=== PATIENT | male | born 1975 | race Caucasian/White ===

== ENCOUNTER → 2025-08-01 | Outpatient (CLI) | payer MEDICAID, SELFPAY ==
--- NOTE | 2025-08-01 07:15 | MRI_ITS ---
PROCEDURE: SPINE LUMBAR (ROUTINE) 08/01/2025 REASON FOR EXAM: PAIN TECHNIQUE: Procedure Code: MRISPL Modality: MR Procedure: SPINE LUMBAR (ROUTINE) COMPARISON: X-ray examination of the lumbar spine, 04/18/2025 FINDINGS: Vertebrae: There is normal bone marrow signal in the lower thoracic and lumbar vertebral bodies. Alignment: There is maintenance of the normal lumbar lordosis. There is mild dextroscoliosis of the lumbar spine. Conus Medullaris: The conus medullaris terminates normally at the L1-2 level. L1-2: There is no disc degeneration. There is no facet arthropathy. There is no central canal stenosis, lateral recess stenosis or foraminal narrowing. L2-3: There is no disc degeneration. There is no significant facet arthropathy. There is no central canal stenosis, lateral recess stenosis or foraminal narrowing. L3-4: There is no disc degeneration. There is no significant facet arthropathy. There is no central canal stenosis, lateral recess stenosis or foraminal narrowing. L4-5: There is a broad-based central disc protrusion. There is bilateral facet arthropathy and ligamentum flavum bulging. There is mild compression of the thecal sac. There is no central canal stenosis. There is no lateral recess stenosis. There is moderate foraminal narrowing bilaterally. L5-S1: There is a focal central disc protrusion. There is facet arthropathy with ligamentum flavum bulging. There is no central canal stenosis, lateral recess stenosis or foraminal narrowing. Sacrum: The visualized sacrum is unremarkable. The paravertebral soft tissues are unremarkable. MRI/Spine Lumbar (Routine) IMPRESSION: There is degenerative disc disease, L4-5 and L5-S1. There is mild compression of the thecal sac and moderate foraminal narrowing bilaterally at L4-5. Reading Location: [place] [id number]
== END | disposition home or self-care (01) ==
LOC: MRI 07:08
PROVIDERS: PCP Nurse Practitioner Family; Referring Provider Student in an Organized Health Care Education/Training Program; Visit Provider Student in an Organized Health Care Education/Training Program
DX: M51.360 Other intervertebral disc degeneration, lumbar region with discogenic back pain only (principal)
CPT/HCPCS: 72148

== ENCOUNTER 2025-09-09 06:51 | Day surgery (SDC) | payer MEDICAID, SELFPAY ==
--- NOTE | 2025-09-02 07:38 | EKG12_ITS ---
Test Reason : PREOP Blood Pressure : */* mmHG Vent. Rate : 73 BPM Atrial Rate : 73 BPM P-R Int : 162 ms QRS Dur : 92 ms QT Int : 380 ms P-R-T Axes : 58 24 54 degrees QTcB Int : 418 ms Sinus rhythm with Premature atrial complexes Otherwise normal ECG Confirmed by Handy Ruiz ([id number]), mapping editor ANTOINETTE DSOUZA ([id number]) on 09/02/2025 10:29:30 AM Referred By: Diego Walker Confirmed By: Handy Ruiz
--- NOTE | 2025-09-02 12:59 | PAT.ANE_ITS ---
Pre-Assessment Diagnosis/Proposed Procedure Planned Operative Procedure(s): (N/A) Septoplasty, Resect/Outfracture Turbinates Anesthesia History Anesthesia History - art consultant: Anesthesia History - art consultant Hx Hospitalization No 08/26/25 13:16 Any Problems With Anesthesia No 08/26/25 13:16 Cholinesterase deficiency No 08/26/25 13:16 You/Your Family Experience No 08/26/25 13:16 fever (hyperthermia) with Relationship Recent Exposure to Contagious Disease Does patient have nerve No 08/26/25 13:16 stimulator Patient instructed to have device shut off --Does patient have Pacemaker or ICD? When Was Last Pacemaker Check QUESTION #4 FULL TEXT: You/Your Family Experience fever (hyperthermia) with Anesthesia Last Oral Intake Last Oral intake: Last Oral Intake NPO since Meds taken in AM with sips of water? 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 - art consultant: PONV - art consultant Female No 08/26/25 13:16 HX of Motion Sickness Yes 08/26/25 13:16 HX of N/V After Surgery No 08/26/25 13:16 Non-Smoker Yes 08/26/25 13:16 Duration of Surgery greater Yes 08/26/25 13:16 than 60 minutes Number of Risk Factors 3 08/26/25 13:16 PONV Score Moderate Risk 08/26/25 13:16 Height & Weight Height & Weight: Anesthesia: Height & Weight Height 6 ft 5 in 04/18/25 08:53 Respiratory Assessment Respiratory Assessment - art consultant: Respiratory Tract Infection Hx - art consultant Hx Respiratory Tract Infection No 08/26/25 13:16 STOP Sleep Apnea STOP Sleep Apnea - art consultant: STOP Sleep Apnea - art consultant Hx Hypertension Yes: CONTROLLED WITH MED 08/26/25 13:16 Hx Sleep Apnea No 08/26/25 13:16 CPAP BIPAP Do you snore loudly (louder No 08/26/25 13:16 than talking or can be heard Do you often feel tired/ No 08/26/25 13:16 fatigued/ sleepy during daytime? Has anyone observed you stop No 08/26/25 13:16 breathing during sleep? STOP Results Negative 08/26/25 13:16 QUESTION #5 FULL TEXT : Do you snore loudly (louder than talking or can be heard through closed doors)? 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 Specify any problems Hx of Preganancy in last 3 N/A 08/26/25 13:16 Months Nurse Filling Out Transfusion NBUCHER 08/26/25 13:16 & Questions: Date: 08/26/25 08/26/25 13:16 Time: 13:17 08/26/25 13:16 Patient unable to answer at this time (ie. confused, unrespo /Reproduction History /Reproductive History - art consultant: /Reproductive Hx- art consultant Hx Now No 08/26/25 13:16 Gestational Age (in weeks): EDC: Hx Hx Para Hx Section SAB No 08/26/25 13:16 Does the father of the baby or his family experience fever w Father of the baby Malignant Hypertension history comment [facility] Medical History (Updated 08/26/25 @ 13:21 by Kamala Wilkins) High cholesterol Blackout Gastric reflux Non-smoker History of edema Osteoarthritis of right knee Effusion, right knee Right knee pain Home Medications Medication Instructions Recorded Last Taken Type amlodipine 10 mg tablet 10 mg PO QDAY 03/21/25 Unkno wn History atorvastatin 80 mg tablet 80 mg PO QDAY 03/21/25 Unkno wn History cetirizine 10 mg tablet 10 mg PO QHS 03/21/25 Unknow n History cyclobenzaprine 10 mg tablet 10 mg PO QHS PRN PRN musc le spasm 08/26/25 Unknown History meloxicam 15 mg tablet 15 mg PO DAILY PRN pain 01/15 Unknown History montelukast 10 mg tablet 10 mg PO DAILY 08/26/25 Unkn own History Allergy/AdvReac Type Severity Reaction Status Date / Time cat dander (cats) Allergy Severe Stuffy nose Verified 08/26/25 13:14 Family History Father Diabetes Mother Diabetes Surgical History (Updated 08/26/25 @ 13:21 by Kamala Wilkins) Hx of LASIK (09/23/24) H/O hernia repair Social History (System 08/26/25 @ 06:46 by Samira Jesus) household members: spouse Smoking Status: Never smoker alcohol intake: current Audit: Pertinent Findings Pertinent Findings EKG Perinent findings: Sinus rhythm with Premature atrial complexes Otherwise normal ECG Confirmed by Handy Ruzi ([id number]), associate editor ANTOINETTE DSOUZA ([id number]) on 09/02/2025 10:29:30 AM Recommendation Anesthesia Recommendation Anesthesia recommendation: OPTIMIZED for anesthesia
[2025-09-09] VITALS (8 sets, daily range): BP systolic 141–163; BP diastolic 91–100; PULSE 70–93; RESP 16–20; TEMP 36.8–37.1; O2SAT 98–100; BMI 31.4
--- OUTSIDE RECORDS SUMMARY | 2025-09-09 06:54 | XMS RPT_ITS | CCD ---
Author Organization [facility] Care Team Providers Care Profile Grinder Technician Name Role Phone Keegan Rothman MD Attending Provider Loyd BRAGG, Dr. Grajeda Attending Provider Naheed Eugene Attending Provider NATE, SHEILA Consulting Unavailable NAHEED BENTLEY PA Admitting Unavailable SHARITA BENTLEYYN PA Primary Care Unavailable NAHEED BENTLEY PA Attending Unavailable PROVIDER, UNKNOWN Consulting Unavailable NATE, SHEILA Consulting Unavailable NATE, SHEILA Attending Unavailable NATE, SHEILA Admitting Unavailable NATE, SHEILA Primary Care Unavailable PROVIDER, UNKNOWN Consulting Unavailable NATE, SHEILA Primary Care Unavailable NATE, SHEILA Consulting Unavailable NATE, SHEILA Attending Unavailable NATE, SHEILA Admitting Unavailable PROVIDER, UNKNOWN Consulting Unavailable NATE, SHEILA Consulting Unavailable SHARITA BENTLEYYN PA Admitting Unavailable SHARITA BENTLEYYN PA Primary Care Unavailable NAHEED BENTLEY PA Attending Unavailable PROVIDER, UNKNOWN Consulting Unavailable Diego Walker Referring Unavailable Diego Walker Attending Unavailable Nate SCREEN PRINTING INSPECTOR, Sheila Primary Care Unavailable Diego Walker Attending Unavailable Bhupinder Walkerin Referring Unavailable Nate SCREEN PRINTING INSPECTOR, Sheila Primary Care Unavailable Nate SCREEN PRINTING INSPECTOR, Sheila Primary Care Unavailable Sharita Bentleyyn Attending Unavailable Mc, Naheed Referring Unavailable Naty Harpl Attending Unavailable Sharita Bentleyyn Attending Unavailable Taras Harp Attending Unavailable Nate SCREEN PRINTING INSPECTOR, Sheila Referring Unavailable Sharita Bentleyyn Attending Unavailable Nate SCREEN PRINTING INSPECTOR, Sheila Primary Care Unavailable Keegan Rothman Attending Unavailable Allergies Allergy Classification Reported Allergen(s) Allergy Type Date of Onset Reaction(s) Facility (3 sources) cat dander; Translations: [cat dander] Allergy to substance 04-18-2025 Stuffy nose [facility] Medications Current Medications Medication Drug Class(es) Dates Sig (Normalized) Sig (Original) amLODIPine 10 mg oral tablet (4 sources) Dihydropyridine Calcium Channel Rajendra Start: 03-21-2025 take 1 tablet by mouth once daily Amlodipine 10 mg tablet Active 10 mg PO daily March 21, 2025 12:00am atorvastatin 80 mg oral tablet (4 sources) HMG-CoA Reductase Inhibitor Start: 03-21-2025 take 1 tablet by mouth once daily Atorvastatin 80 mg tablet Active 80 mg PO daily March 21, 2025 12:00am cetirizine hydrochloride 10 mg oral tablet (4 sources) Histamine-1 Receptor Antagonist Start: 03-21-2025 take 1 tablet by mouth at bedtime Cetirizine 10 mg tablet Active 10 mg PO AT BEDTIME March 21, 2025 12:00am meloxicam 15 mg oral tablet (1 source) Nonsteroidal Anti-inflammatory Drug Start: 04-18-2025 take 1 tablet by mouth once daily Meloxicam 15 mg tablet Active 15 mg PO daily April 18, 2025 12:00am Problems Active Problems Problem Classification Problem Date Documented Date Episodic/Chronic Disorders of lipid metabolism (2 sources) Hyperlipidemia, unspecified; Translations: [Hyperlipidemia, unspecified] Onset: 09-07-2024 Chronic Essential hypertension (5 sources) Hypertensive disorder; Translations: [Essential (primary) hypertension] Onset: 03-14-2025 03-21-2025 Chronic Osteoarthritis (7 sources) Osteoarthritis of right knee joint; Translations: [Unilateral primary osteoarthritis, right knee] Onset: 04-09-2025 03-21-2025 Chronic Other non-traumatic joint disorders (6 sources) Effusion of right knee joint; Translations: [Effusion, right knee] 03-21-2025 Episodic Unclassified (2 sources) Other intervertebral disc degeneration, lumbar region with discogenic back pain only; Translations: [Other intervertebral disc degeneration, lumbar region with discogenic back pain only] Onset: 06-25-2025 Unclassified (1 source) Other intervertebral disc degeneration, lumbar region with discogenic back pain only; Translations: [Other intervertebral disc degeneration, lumbar region with discogenic back pain only] Onset: 08-26-2025 Past or Other Problems Problem Classification Problem Date Documented Date Episodic/Chronic Diabetes mellitus without complication (2 sources) Impaired fasting glucose; Translations: [Impaired fasting glucose] Onset: 09-07-2024 Episodic Other non-traumatic joint disorders (9 sources) Pain in right knee; Translations: [Right knee pain] Onset: 04-09-2025 03-21-2025 Episodic Other non-traumatic joint disorders (1 source) Effusion, right knee; Translations: [Effusion, right knee] Onset: 04-09-2025 Episodic Spondylosis; intervertebral disc disorders; other back problems (1 source) Dorsalgia, unspecified; Translations: [Dorsalgia, unspecified] Onset: 04-18-2025 Episodic Unclassified (1 source) Other intervertebral disc degeneration, lumbar region with discogenic back pain only; Translations: [Other intervertebral disc degeneration, lumbar region with discogenic back pain only] Onset: 06-25-2025 Results Test Name Value Interpretation Reference Range Facil ity 12 Lead EKGon 09-02-[address] [facility] Cardiovascular Services [address] [place] [address] 12 Lead EKG 09/02/25 0742 MR#: [id number] Acct: [id number] Name: JOSE ZAPIEN Rep #: [id number] : 1975 50 From: Handy Ruiz MD Attending Dr: Dr. Diego Walker MD Status: PRE [facility] [place]: Diego Walker MD Date: 09/02/25 [place] [facility] [place] Sex: M C Admitted: Test Reason : PREOP Blood Pressure : */* mmHG Vent. Rate : 73 BPM Atrial Rate : 73 BPM P-R Int : 162 ms QRS Dur : 92 ms QT Int : 380 ms P-R-T Axes : 58 24 54 degrees QTcB Int : 418 ms Sinus rhythm with Premature atrial complexes Otherwise normal ECG Confirmed by Handy Ruiz ([id number]), film editor supervisor ANTOINETTE DSOUZA ([id number]) on 09/02/2025 10:29:30 AM Referred By: Diego Walker Confirmed By: Handy Ruiz 09/02/25 1029 Date Handy Ruiz MD CC: DANILO Sullivan; Dr. Diego Walker MD Signed Normal [facility] MR/PATLidia 09-02-2025 MR/PAT.DEV [facility] Medical Records Department [address] [place] [address] PAT - Anesthesia 09/02/25 1259 MR#: [id number] Acct: [id number] Name: JOSE ZAPIEN Rep #: [id number] : 1975 50 From: Zoltan Green MD PCP: Sheila Sullivan SCREEN PRINTING INSPECTORValeriyC Status:PRE SDC Y Race: C [place] [facility] [place]-Assessment Diagnosis/Proposed Procedure Planned Operative Procedure(s): (N/A) Septoplasty, Resect/Outfracture Turbinates Anesthesia History Anesthesia History - reed dipper: Anesthesia History - reed dipper Hx Hospitalization No 08/26/25 13:16 Any Problems With Anesthesia No 08/26/25 13:16 Cholinesterase deficiency No 08/26/25 13:16 You/Your Family Experience No 08/26/25 13:16 fever (hyperthermia) with Relationship Recent Exposure to Contagious Disease Does patient have nerve No 08/26/25 13:16 stimulator Patient instructed to have device shut off --Does patient have Pacemaker or ICD? When Was Last Pacemaker Check QUESTION #4 FULL TEXT: You/Your Family Experience fever (hyperthermia) with Anesthesia Last Oral Intake Last Oral intake: Last Oral Intake NPO since Meds taken in AM with sips of water? 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 - reed dipper: PONV - reed dipper Female No 08/26/25 13:16 HX of Motion Sickness Yes 08/26/25 13:16 HX of N/V After Surgery No 08/26/25 13:16 Non-Smoker Yes 08/26/25 13:16 Duration of Surgery greater Yes 08/26/25 13:16 than 60 minutes Number of Risk Factors 3 08/26/25 13:16 PONV Score Moderate Risk 08/26/25 13:16 Height Weight Height Weight: Anesthesia: Height Weight Height 6 ft 5 in 04/18/25 08:53 Respiratory Assessment Respiratory Assessment - reed dipper: Respiratory Tract Infection Hx - reed dipper Hx Respiratory Tract Infection No 08/26/25 13:16 STOP Sleep Apnea STOP Sleep Apnea - reed dipper: STOP Sleep Apnea - reed dipper Hx Hypertension Yes: CONTROLLED WITH MED 08/26/25 13:16 Hx Sleep Apnea No 08/26/25 13:16 CPAP BIPAP Do you snore loudly (louder No 08/26/25 13:16 than talking or can be heard Do you often feel tired/ No 08/26/25 13:16 fatigued/ sleepy during daytime? Has anyone observed you stop No 08/26/25 13:16 breathing during sleep? STOP Results Negative 08/26/25 13:16 QUESTION #5 FULL TEXT : Do you snore loudly (louder than talking or can be heard through closed doors)? 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 Specify any problems Hx of Preganancy in last 3 N/A 08/26/25 13:16 Months Nurse Filling Out Transfusion NBUCHER 08/26/25 13:16 Questions: Date: 08/26/25 08/26/25 13:16 Time: 13:17 08/26/25 13:16 Patient unable to answer at this time (ie. confused, unrespo /Reproductio n History /Reproductiv e History - reed dipper: /Reproductiv e Hx- reed dipper Hx Now No 08/26/25 13:16 Gestational Age (in weeks): EDC: Hx Hx Para Hx Section SAB No 08/26/25 13:16 Does the father of the baby or his family experience fever w Father of the baby Malignant Hypertension history comment [facility] Medical History (Updated 08/26/25 @ 13:21 by Kamala Wilkins) High cholesterol Blackout Gastric reflux Non-smoker History of edema Osteoarthritis of right knee Effusion, right knee Right knee pain Home Medications ???Medication ???Instructions ???Recorded ???Last Taken ???Type amlodipine 10 mg tablet 10 mg PO QDAY 03/21/25 Unknown His tory atorvastatin 80 mg tablet 80 mg PO QDAY 03/21/25 Unknown His tory cetirizine 10 mg tablet 10 mg PO QHS 03/21/25 Unknown Hist ory cyclobenzaprine 10 mg tablet 10 mg PO QHS PRN PRN muscle spasm 08/26/25 Unknown History meloxicam 15 mg tablet 15 mg PO DAILY PRN pain 08/26/25 U nknown History montelukast 10 mg tablet 10 mg PO DAILY 08/26/25 Unknown Hi story Allergy/AdvReac Type Severity Reaction Status Date / Ralph (more content not included)... Normal [facility] Orthopedic Visit Reporton Orthopedic Visit Report [facility] [address] [place] [id number] OFFICE VISIT Date of Service: 08/23/25 MR#: [id number] Acct: [id number] Name: JOSE ZAPIEN Rep #: [id number] : 1975 Provider: MAIA Jane Age/Sex: 50/M Location: [facility] [place].[facility] Status: Signed Intake Vital Signs 04/18/25 08:53 Height 6 ft 5 in Weight: 260 lb BMI 30.8 Intake Visit Reasons: LUMBAR SPINE Chief Complaint: Lumbar spine pain Accompanied by: Self Allergies cat dander (cats) Allergy (Severe, Verified 08/23/25 08:10) Stuffy nose Medications ???Medication ???Instructions ???Recorded ???Confirmed ???Type amlodipine 10 mg tablet 10 mg PO QDAY 03/21/25 08/23/25 Hi story atorvastatin 80 mg tablet 80 mg PO QDAY 03/21/25 08/23/25 Hi story cetirizine 10 mg tablet 10 mg PO QHS 03/21/25 08/23/25 His tory PFSH Medical History Osteoarthritis of right knee Effusion, right knee Right knee pain Surgical History H/O hernia repair Family History Father Diabetes Mother Diabetes Social History household members: spouse Smoking Status: Never smoker alcohol intake: current HPI LUMBAR SPINE Details: This documentation accurately reflects the service provided and the decisions made by me, MAIA Jane 08/23/25 0806. Part of today???s visit was documented by Shanthi GUAN, acting as scribe. JOSE ZAPIEN is a 50 year old M here today for MRI review of the lumbar spine. Patient denies any changes to his symptoms. He has completed 6 weeks of therapy. He is getting sinus surgery in August. HPI from 04/18/25: Patient is having pain in the lower back. The pain is like an achy and throbbing pain. When he lifting up a heavy item he can feel something pulling his back. When he sleeps on his side, or back too long he feels an ache. This has been going on for 7-8 years. Patient states that he was at work when this happened. 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 Patient denies any surgery on his lower back. Sitting for a long period of time makes the pain worse. Bending and lifting heavy items makes the pain worse. Patient denies any injections in his back. he denies any physical therapy. Patient did massage therapy, but that didn't help. He states that he did acupuncture a few years ago, but it didn't help his back pain. Patient stated that he went to a chiropractor, but it didn't help his back, his back was too tight from working. He saw the chiropractor 2-3 times per week for a while and now hasn't seen any benefit with it. Hasn't been back in 2-3 years. Patient denies any diabetes, or blood thinners. No heart or lung issues. Patient denies any smoking, or drug use. Patient denies any numbness or tingling in the feet or toes. He states that he hasn't noticed any balance issues. No cane or walker. Patient reports that he is supposed to be wearing a right sided heel lift. The patient also reports that he has seen Dr. Nguyen recently for right-sided knee pain and a knee effusion. Says that he has been trying to take ibuprofen [id number]-gzt-aloneex for this issue. Ortho Exam General General: Yes no acute distress Neurologic: Yes alert and Yes oriented x3 Psychologic: Yes reasonable and appropriate Spine SPINE TESTING CERVICAL THORACIC LUMBAR Musculoskeletal Strength 0=absent - 5=normal Details: Neurological exam of the lower extremities shows 5x5 power. Normal sensations across all dermatomes. No hyperreflexia. No midline or paraspinal tenderness. Gaenslen's positive on left. Figure 4 negative bilaterally. There is a small circular right sided soft tissue palpated on exam. Coding Level of Care Code Off vis,est,level 4 Diagnoses Degenerative disc disease (DDD) of lumbar region with axial back pain without leg pain M51.360 Assessment and Plan Assessment and Plan (1) Degenerative disc disease (DDD) of lumbar region with axial back pain without leg pain: Status: Acute Orders: Referrals Pain Management M51.360 - Other intervertebral disc degeneration, lumbar region with discogenic back pain only Plan Again reviewed prior lumbar X-rays show a dextroscoliosis, mild limb length discrepancy with the right shorter than the left, mild degenerative changes in the lumbar spine. Reviewed lumbar MRI from 08/01/2025. Lumbar MRI showed L4-5 broad-based minimal disc bulge without any central canal stenosis and moderate neural foraminal stenosis. L5-S1 central mild disc bulge without any central canal stenosis or foraminal stenosis. Explained the imaging fin (more content not included)... Normal [facility] Spine Lumbar (Routine)on Spine Lumbar (Routine) [facility] Imaging Services [address] [place] [address] Spine Lumbar (Routine) MR#: [id number] Acct: [id number] Name: JOSE ZAPIEN Rep #: [id number] : 1975 M 50 From: Shantanu Liriano MD PCP: DANILO Quick Status: REG CLI Study: Spine Lumbar (Routine) Date of Exam: 08/01/25 Exam# [id number] Ordering Dr: Naheed Bentley PROCEDURE: SPINE LUMBAR (ROUTINE) 08/01/2025 REASON FOR EXAM: PAIN TECHNIQUE: Procedure Code: MRISPL Modality: MR Procedure: SPINE LUMBAR (ROUTINE) COMPARISON: X-ray examination of the lumbar spine, 04/18/2025 FINDINGS: Vertebrae: There is normal bone marrow signal in the lower thoracic and lumbar vertebral bodies. Alignment: There is maintenance of the normal lumbar lordosis. There is mild dextroscoliosis of the lumbar spine. Conus Medullaris: The conus medullaris terminates normally at the L1-2 level. L1-2: There is no disc degeneration. There is no facet arthropathy. There is no central canal stenosis, lateral recess stenosis or foraminal narrowing. L2-3: There is no disc degeneration. There is no significant facet arthropathy. There is no central canal stenosis, lateral recess stenosis or foraminal narrowing. L3-4: There is no disc degeneration. There is no significant facet arthropathy. There is no central canal stenosis, lateral recess stenosis or foraminal narrowing. L4-5: There is a broad-based central disc protrusion. There is bilateral facet arthropathy and ligamentum flavum bulging. There is mild compression of the thecal sac. There is no central canal stenosis. There is no lateral recess stenosis. There is moderate foraminal narrowing bilaterally. L5-S1: There is a focal central disc protrusion. There is facet arthropathy with ligamentum flavum bulging. There is no central canal stenosis, lateral recess stenosis or foraminal narrowing. Sacrum: The visualized sacrum is unremarkable. The paravertebral soft tissues are unremarkable. MRI/Spine Lumbar (Routine) IMPRESSION: There is degenerative disc disease, L4-5 and L5-S1. There is mild compression of the thecal sac and moderate foraminal narrowing bilaterally at L4-5. Reading Location: [place] [address] CC: DANILO Sullivan; MAIA Jane Plant Floor Automation Manager: Signed Normal [facility] L/S Spine Min 4 Viewson 03-25 L/S Spine Min [address] [facility] Imaging Services [address] [place] [address] L/S Spine Min 4 Views MR#: [id number] Acct: [id number] Name: JOSE ZAPIEN Rep #: [id number] : 1975 M 49 From: Brayden Napier MD PCP: Status: DEP AMB Study: L/S Spine Min 4 Views Date of Exam: 04/18/25 Exam# [id number] Ordering Dr: Naheed Bentley EXAM: XR Lumbosacral Spine Flexion/Extension Only, 2 or 3 Views CLINICAL INDICATION: ONGOING BACK PAIN TECHNIQUE: Lateral flexion/extension views of the lumbar spine and sacrum. COMPARISON: No relevant prior studies available. FINDINGS: VERTEBRAE: Mild facet arthropathy of L4-S1. Normal sagittal alignment. No acute fracture or significant facet arthropathy. SACRUM/COCCYX: Unremarkable as visualized. No acute fracture. DISC SPACES: No acute findings. No significant narrowing. SOFT TISSUES: Unremarkable. RAD/L/S Spine Min 4 Views IMPRESSION: 1. No acute fracture or significant facet arthropathy. 2. Degenerative changes as above. Reading [facility] CC: MAIA Jane Plant Floor Automation Manager: Signed Normal [facility] Orthopedic Visit Reporton Orthopedic Visit Report [facility] [address] [place] [address] OFFICE VISIT Date of Service: 04/18/25 MR#: [id number] Acct: [id number] Name: JOSE ZAPIEN Rep #: [id number] : 1975 Provider: MAIA Jane Age/Sex: 49/M Location: [facility] [place] Status: Signed Intake Vital Signs 03/21/25 09:19 04/18/25 08:53 Height 6 ft 5 in 6 ft 5 in Weight: 259 lb 8 oz 260 lb BMI 30.7 30.8 Intake Visit Reasons: LUMBAR SPINE Chief Complaint: Lumbar spine pain Accompanied by: Self Is patient in pain?: No Allergies cat dander (cats) Allergy (Severe, Verified 04/18/25 08:56) Stuffy nose Medications ???Medication ???Instructions ???Recorded ???Confirmed ???Type amlodipine 10 mg tablet 10 mg PO QDAY 03/21/25 04/18/25 Hi story atorvastatin 80 mg tablet 80 mg PO QDAY 03/21/25 04/18/25 Hi story cetirizine 10 mg tablet 10 mg PO QHS 03/21/25 04/18/25 His tory meloxicam 15 mg tablet 15 mg PO QDAY #30 tabs 04/18/25 Rx Have you fallen in the past year?: No [facility] Medical History Osteoarthritis of right knee Effusion, right knee Right knee pain Surgical History H/O hernia repair Family History Father Diabetes Mother Diabetes Social History household members: spouse Smoking Status: Never smoker alcohol intake: current HPI LUMBAR SPINE Details: This documentation accurately reflects the service provided and the decisions made by me, MAIA Jane 04/18/25 0853. Part of today???s visit was documented by Glenn Jones MA, acting as scribe. JOSE ZAPIEN is a 49 year old M here today for lumbar spine. Patient is having pain in the lower back. The pain is like an achy and throbbing pain. When he lifting up a heavy item he can feel something pulling his back. When he sleeps on his side, or back too long he feels an ache. This has been going on for 7-8 years. Patient states that he was at work when this happened. 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 Patient denies any surgery on his lower back. Sitting for a long period of time makes the pain worse. Bending and lifting heavy items makes the pain worse. Patient denies any injections in his back. he denies any physical therapy. Patient did massage therapy, but that didn't help. He states that he did acupuncture a few years ago, but it didn't help his back pain. Patient stated that he went to a chiropractor, but it didn't help his back, his back was too tight from working. He saw the chiropractor 2-3 times per week for a while and now hasn't seen any benefit with it. Hasn't been back in 2-3 years. Patient denies any diabetes, or blood thinners. No heart or lung issues. Patient denies any smoking, or drug use. Patient denies any numbness or tingling in the feet or toes. He states that he hasn't noticed any balance issues. No cane or walker. Patient reports that he is supposed to be wearing a right sided heel lift. The patient also reports that he has seen Dr. Nguyen recently for right-sided knee pain and a knee effusion. Says that he has been trying to take ibuprofen bnxi-hdx-uviyvyk for this issue. Ortho Exam General General: Yes no acute distress Neurologic: Yes alert and Yes oriented x3 Spine SPINE TESTING CERVICAL THORACIC LUMBAR Musculoskeletal Strength 0=absent - 5=normal Details: Neurological exam of the lower extremities shows 5x5 power. Normal sensations across all dermatomes. No hyperreflexia. No midline or paraspinal tenderness. Gaenslen's positive on left. Figure 4 negative bilaterally. There is a small circular right sided soft tissue palpated on exam. Coding Level of Care Code Off vis,est,level 3 Diagnoses Degenerative disc disease (DDD) of lumbar region with axial back pain without leg pain M51.360 Assessment and Plan Assessment and Plan (1) Degenerative disc disease (DDD) of lumbar region with axial back pain without leg pain: Status: Acute Orders: Orders L/S Spine Min 4 Views Today M54.9 - Dorsalgia, unspecified Spine Lumbar (Routine) Today M51.360 - Other intervertebral disc degeneration, lumbar region with discogenic back pain only Referrals Physical Therapy Referral M51.360 - Other intervertebral disc degeneration, lumbar region with discogenic back pain only Medications: New meloxicam 15 mg PO QDAY 30 tabs 0RF Plan Obtained and reviewed lumbar x-rays today in the clinic. Independent rotation of the x-rays was performed. X-rays show a dextroscoliosis, mil (more content not included)... Normal [facility] Knee 4 or More Viewson 03-[address] [facility] Imaging Services [facility] [address] [place], [place] [id number] Knee 4 or More Views MR#: [id number] Acct: [id number] Name: JOSE ZAPIEN Rep #: [id number] : 1975 M 49 From: Thee Coburn MD PCP: Status: DEP AMB Study: Knee 4 or More Views Date of Exam: 03/21/25 Exam# [id number] Ordering Dr: Keegan Rothman MD PROCEDURE: KNEE 4 OR MORE VIEWS 03/21/2025 REASON FOR EXAM: PAIN AND POPPING, NKI TECHNIQUE: 4 view(s) of the right knee COMPARISON: None available FINDINGS: No fracture or dislocation. Nzbuvmbp-cb-ufldw joint effusion. The joint spaces appear within limits. Question mild lateral translation of the tibia in relation to the femur on the weightbearing AP view RAD/Knee 4 or More Views IMPRESSION: Fgnfyubu-gh-oztdo joint effusion. If further clinical concern for possible internal joint derangement may further evaluate with MRI as warranted. Reading Location: [id number] CC: Dr. Keegan Rothman MD Plant Floor Automation Manager: Signed Normal [facility] Orthopedic Visit Reporton Orthopedic Visit Report [facility] [address] [place] [address] OFFICE VISIT Date of Service: 03/21/25 MR#: [id number] Acct: [id number] Name: JOSE ZAPIEN Rep #: [id number] : 1975 Provider: Dr. Keegan jung MD Age/Sex: 49/M Location: [facility]ANN[facility] Status: Signed Intake Vital Signs 03/21/25 09:19 Height 6 ft 5 in Weight: 259 lb 8 oz BMI 30.7 Intake Visit Reasons: RIGHT KNEE Accompanied by: Self Is patient in pain?: Yes Pain scale (1-10): 3 Allergies No Known Allergies Allergy (Unverified 03/21/25 09:19) Medications ???Medication ???Instructions ???Recorded ???Confirmed ???Type amlodipine 10 mg tablet 10 mg PO QDAY 03/21/25 03/21/25 Hi story atorvastatin 80 mg tablet 80 mg PO QDAY 03/21/25 03/21/25 Hi story cetirizine 10 mg tablet 10 mg PO QHS 03/21/25 03/21/25 His tory Have you fallen in the past year?: No [facility] Medical History (Updated 03/21/25 @ 09:43 by Keegan Rothman MD) Osteoarthritis of right knee Effusion, right knee Right knee pain Surgical History (Updated 03/21/25 @ 09:21 by Gayle Ley) H/O hernia repair Family History (Updated 03/21/25 @ 09:22 by Gayle Ley) Father Diabetes Mother Diabetes Social History (Updated 03/21/25 @ 09:22 by Gayle Ley) household members: spouse Smoking Status: Never smoker alcohol intake: current HPI RIGHT KNEE Details: This documentation accurately reflects the service provided and the decisions made by me, Dr. Keegan Rothman MD 03/21/25 0802. Part of today???s visit was documented by [ ], acting as scribe. JOSE ZAPIEN is a 49 year old M here today for right knee pain. This has been going on for 30 years. Back then the patient was 20 and he was told that he has some soft tissue that needed to be removed in the knee he never got that done his dad had carpal tunnel syndrome at the time and arthritis. He has been dealing with a problem ever since has not had no surgery no recent treatment no bracing physical therapy or other forms of management. 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 Most the pain is anteriorly and diffusely about the knee. It feels tight to go into deep flexion. No recent injuries. Supplemental Info Right knee x-rays 4 views obtained this demonstrates mild medial OA. nil acute. effusion Coding Level of Care Code Off vis,new,level 4 Diagnoses Right knee pain M25.561 Effusion, right knee M25.461 Osteoarthritis of right knee M17.11 Assessment and Plan Assessment and Plan (1) Right knee pain: Status: Acute Plan: JOSE ZAPIEN is a 49 year old M here today for right knee pain. Wants to carry on non surgical and try some oral NSAIds. declined an injection today, will try another week of conservative management. Declined PT / MRI pathway. Has tried a brace. If no better or worse in a week then will try the injection. Patient counselled on diagnosis, prognosis and treatment options. Osteoarthritis (OA) occurs when the cartilage in the knee joint breaks down, causing pain and stiffness. Here are several treatment options to help manage knee pain: 1. Lifestyle Changes What it is: Losing weight, avoiding high-impact activities, and exercising with low-impact activities like swimming or walking. How it helps: Reduces strain on the knee joint, improves muscle strength, and eases pain. 2. Physical Therapy What it is: Targeted exercises to strengthen the muscles around the knee and improve flexibility. How it helps: Provides support to the knee and improves mobility, reducing pain. 3. Medications What they are: Rbtp-pit-pgvxnvh pain relievers like ibuprofen, naproxen, or acetaminophen. How they help: Reduce pain and inflammation, making it easier to move the knee. 4. Injections What they are: Corticosteroid injections for inflammation, hyaluronic acid for lubrication, or PRP injections to promote healing. How they help: Provide temporary pain relief and improve knee function. 5. Assistive Devices What they are: Knee braces, sleeves, or custom shoe inserts. How they help: Provide support, stabilize the knee, and reduce pain. 6. Heat and Cold Therapy What it is: Applying heat or cold to the knee to relieve pain and swelling. How it helps: Heat relaxes muscles, and cold reduces inflammation. 7. Surgery What it is: Options like arthroscopy or knee replacement surgery for severe cases. How it helps: Provides long-term pain relief and improves knee function. When to Seek Help: If knee pain affects daily activities or doesn???t improve with self-care measures. (2) Effusion, right knee: Status (more content not included)... Normal [facility] CBC + DIFFon 03-14-2025 Baso # 0.01 x10EE3/UL Normal 0.00 - 0.10 [facility] Comment on above: Performed By: #### 2 [id number] #### [facility],[address] [place] [address] 45757 Basophils/100 WBC (Bld) 0.2 % Normal 0.0 - 2.0 [facility] Comment on above: Performed By: #### 2 34144 #### [facility],[address] [place] [address] 35870 CBC + DIFF Normal [facility] Comment on above: Result Comment: CBC- COMPLETE BLOOD COUNT Performed By: #### 2 35335 #### [facility],[address] [place] [address] 78843 EO # 0.18 x10EE3/UL Normal 0.00 - 0.50 [facility] Comment on above: Performed By: #### 2 70392 #### [facility],[address] [place], [place] [address] Eosinophils/100 WBC (Bld) 3.2 % Normal 0.0 - 7.0 [facility] Comment on above: Performed By: #### 2 59028 #### [facility],[address] [place], [place] [address] Erythrocyte distribution width (RBC) [Ratio] 13.2 % Normal 12.0 - 15.6 [facility] Comment on above: Performed By: #### 2 21271 #### [facility],[address] [place], [place] [address] Hematocrit (Bld) [Volume fraction] 47.5 % Normal 40.0 - 52.0 [facility] Comment on above: Performed By: #### 2 41076 #### [facility],[address] [place] [place] [address] 70094 Hemoglobin (Bld) [Mass/Vol] 16.3 g/dL Normal 13.0 - 17.5 [facility] Comment on above: Performed By: #### 2 44974 #### [facility],[address] [place] [address] 03130 Lymph # 1.45 x10EE3/UL Normal 0.80 - 2.80 [facility] Comment on above: Performed By: #### 2 58035 #### [facility],[address] [place] [address] 91271 Lymphocytes/100 WBC (Bld) 25.1 % Normal 20.0 - 45.0 [facility] Comment on above: Performed By: #### 2 47369 #### [facility],[address] [place] [address] MANUAL DIFF N/A Normal [facility] Comment on above: Performed By: #### 2 20783 #### [facility],[address] [place] [address] MCH (RBC) [Entitic mass] 29 pg Normal 27 - 33 [facility] Comment on above: Performed By: #### 2 80638 #### [facility],[address] [place] [address] MCHC 34 X10 3 Normal 32 - 36 [facility] Comment on above: Performed By: #### 2 59746 #### [facility],[address] [place] [address] MCV (RBC) [Entitic vol] 85 fL Normal 81 - 98 [facility] Comment on above: Performed By: #### 2 59631 #### [facility],[address] [place] [address] [place]ridge # 0.31 x10EE3/UL Normal 0.20 - 1.00 [facility] Comment on above: Performed By: #### 2 62611 #### [facility],[address] [place] [address] MONOS % 5.3 % Normal 0.0 - 10.0 [facility] Comment on above: Performed By: #### 2 21136 #### [facility],[address] [place] [address] Morphology Paul (Bld) [Interp] N/A Normal [facility] Comment on above: Performed By: #### 2 85446 #### [facility],[address] [place] [address] Neut # 3.82 x10EE3/UL Normal 1.50 - 7.10 [facility] Comment on above: Performed By: #### 2 85219 #### [facility],[address] [place] [address] 35133 Neutrophils/100 WBC (Bld) 66.3 % Normal 46.0 - 76.0 [facility] Comment on above: Performed By: #### 2 86818 #### [facility],[address] [place] [address] 06577 PLATELET 273 x10EE3/UL Normal 150 - 450 [facility] Comment on above: Performed By: #### 2 90397 #### [facility],[address] [place] [address] 16466 Platelet mean volume (Bld) [Entitic vol] 7.4 fL Normal 6.4 - 10.5 [facility] Comment on above: Result Comment: AUTO MATED DIFFERENTIAL Performed By: #### 2 02851 #### [facility],[address] [place] [address] 78565 RBC 5.59 x 10EE6/UL Normal 4.50 - 6.00 [facility] Comment on above: Performed By: #### 2 75769 #### [facility],[address] [place] [address] 18763 WBC 5.8 x 10EE3/UL Normal 4.5 - 10.8 [facility] Comment on above: Performed By: #### 2 27895 #### [facility],[address] [place] [address] 27499 CMP with eGFRon 03-14-2025 AGE 49 years Normal [facility] Comment on above: Performed By: #### 2 22502 #### [facility],[address] [place] [address] 00007 Albumin [Mass/Vol] 3.9 g/dL Normal 3.4 - 5.0 [facility] Comment on above: Performed By: #### 2 66902 #### [facility],[address] [place] [address] 66122 Albumin/Globulin [Mass ratio] 1.1 {ratio} Normal 0.9 - 1.6 [facility] Comment on above: Performed By: #### 2 11466 #### [facility],[address] [place] [address] 43796 ALK PHOS 88 U/L Normal 46 - 116 [facility] Comment on above: Performed By: #### 2 30375 #### [facility],[address] [place] [address] 67304 ALT [Catalytic activity/Vol] 53 U/L Normal 16 - 63 [facility] Comment on above: Performed By: #### 2 35461 #### [facility],[address] [place] [address] 10698 Anion gap [Moles/Vol] 15 mmol/L Normal 10 - 20 [facility] Comment on above: Performed By: #### 2 33678 #### [facility],[address] [place] [address] 09223 AST [Catalytic activity/Vol] 23 U/L Normal 15 - 37 [facility] Comment on above: Performed By: #### 2 79476 #### [facility],[address] [place] [address] 69823 B/C RATIO 17 ratio Normal 0 - 30 [facility] Comment on above: Performed By: #### 2 41026 #### [facility],[address] [place] [address] 48399 Bilirubin [Mass/Vol] 0.4 mg/dL Normal 0.2 - 1.0 [facility] Comment on above: Performed By: #### 2 05610 #### [facility],[address] [place] [address] 68260 Calcium [Mass/Vol] 9.0 mg/dL Normal 8.5 - 10.1 [facility] Comment on above: Performed By: #### 2 79219 #### [facility],[address] [place] [address] 62018 Chloride [Moles/Vol] 104 mmol/L Normal 98 - 107 [facility] Comment on above: Performed By: #### 2 51366 #### [facility],[address] [place] [address] 03733 CMP with eGFR Normal [facility] Comment on above: Result Comment: COMP REHENSIVE METABOLIC PANEL Performed By: #### 2 60556 #### [facility],[address] [place] [address] 44649 CO2 [Moles/Vol] 25.1 mmol/L Normal 21.0 - 32.0 [facility] Comment on above: Performed By: #### 2 36668 #### [facility],[address] [place] [address] 58817 Creatinine [Mass/Vol] 0.93 mg/dL Normal 0.70 - 1.30 [facility] Comment on above: Performed By: #### 2 23247 #### [facility],[address] [place] [address] 58865 GFR/1.73 sq M.predicted among non-blacks MDRD (S/P/Bld) [Vol rate/Area] mL/min/{1.73_m2} Normal 60 - 999 [facility] Comment on above: Performed By: #### 2 00666 #### [facility],[address] [place] [address] 43979 Result Comment: ACCO RDING TO THE NATIONAL KIDNEY DISEASE EDUCATION PROGRAM(NKDE), A NORMAL eGFR IS A VALUE GREATER THAN OR EQUAL TO 60 ML/MIN/1.73 SQ METERS. CHRONIC KIDNEY DISEASE: <60mL/MIN/1.73 SQ METERS KIDNEY FAILURE: <15mL/MIN/1.73 SQ METERS THIS TEST SHOULD ONLY BE USED FOR PATIENTS 18 YEARS OF AGE AND OLDER. Globulin (S) [Mass/Vol] 3.4 g/dL Normal 1.5 - 3.8 [facility] Comment on above: Performed By: #### 2 07581 #### [facility],[address] [place] [address] 99536 Glucose [Mass/Vol] 94 mg/dL Normal 74 - 106 [facility] Comment on above: Performed By: #### 2 62507 #### [facility],[address] [place] [address] Potassium [Moles/Vol] 4.2 mmol/L Normal 3.5 - 5.1 [facility] Comment on above: Performed By: #### 2 95218 #### [facility],[address] [place] [address] Protein [Mass/Vol] 7.3 g/dL Normal 6.4 - 8.2 [facility] Comment on above: Performed By: #### 2 66862 #### [facility],[address] [place] [address] Sodium [Moles/Vol] 140 mmol/L Normal 136 - 145 [facility] Comment on above: Performed By: #### 2 22081 #### [facility],[address] [place] [address] Urea nitrogen [Mass/Vol] 16 mg/dL Normal 7 - 18 [facility] Comment on above: Performed By: #### 2 96334 #### [facility],[address] [place] [address] HEMOGLOBIN A1C (POM)on 03-14 Glucose [Mass/Vol] 119.8 mg/dL High 0.0 - 0.0 [facility] Comment on above: Result Comment: BLDo HEMOGLOBIN A1C REFERENCE RANGESBLDo Suggested Diagnosis HbA1c(%) HbA1C (mmol/mol Diabetic >/=6.5 >/=48 Prediabetes 5.7 - 6.4 39 - 47 Normal <5.7 <39 Performed By: #### 2 32094 #### [facility],[address] [place] [address] HbA1c (Bld) [Mass fraction] 5.8 % Normal 0.0 - 6.5 [facility] Comment on above: Performed By: #### 2 38909 #### [facility],[address] [place] [address] LIPID PROFILEon 03-14-2025 Cholesterol [Mass/Vol] 173 mg/dL Normal 0 - 240 [facility] Comment on above: Performed By: #### 2 12809 #### [facility],[address] [place] [address] 53913 Cholesterol in HDL [Mass/Vol] 27 mg/dL Low 40 - 60 [facility] Comment on above: Performed By: #### 2 13471 #### [facility],[address] [place] [address] 98631 Cholesterol in LDL [Mass/Vol] 94 mg/dL Normal 0 - 129 [facility] Comment on above: Performed By: #### 2 05593 #### [facility],[address] [place] [address] 06973 Cholesterol.total/C holesterol in HDL [Mass ratio] 6.4 {ratio} High 0.0 - 5.0 [facility] Comment on above: Performed By: #### 2 89612 #### [facility],[address] [place] [address] 43606 Lipid 1996 panel Normal [facility] Comment on above: Result Comment: LIPI D PROFILE Performed By: #### 2 73019 #### [facility],[address] [place] [address] 91170 Triglyceride [Mass/Vol] 260 mg/dL High 0 - 150 [facility] Comment on above: Performed By: #### 2 91630 #### [facility],[address] [place] [address] 20773 HEMOGLOBIN A1C (POM)on 09-07 Glucose [Mass/Vol] 111.2 mg/dL High 0.0 - 0.0 [facility] Comment on above: Result Comment: BLDo HEMOGLOBIN A1C REFERENCE RANGESBLDo Suggested Diagnosis HbA1c(%) HbA1C (mmol/mol Diabetic >/=6.5 >/=48 Prediabetes 5.7 - 6.4 39 - 47 Normal <5.7 <39 Performed By: #### 2 77323 #### [facility],[address] [place] [address] 56407 HbA1c (Bld) [Mass fraction] 5.5 % Normal 0.0 - 6.5 [facility] Comment on above: Performed By: #### 2 74504 #### [facility],[address] [place] [address] 95431 LIPID PROFILEon 09-07-2024 Cholesterol [Mass/Vol] 157 mg/dL Normal 0 - 240 [facility] Comment on above: Performed By: #### 2 80082 #### [facility],[address] [place] [address] 35516 Cholesterol in HDL [Mass/Vol] 35 mg/dL Low 40 - 60 [facility] Comment on above: Performed By: #### 2 33161 #### [facility],[address] [place] [address] 75538 Cholesterol in LDL [Mass/Vol] 84 mg/dL Normal 0 - 129 [facility] Comment on above: Performed By: #### 2 08828 #### [facility],[address] [place] [address] 46438 Cholesterol.total/C holesterol in HDL [Mass ratio] 4.5 {ratio} Normal 0.0 - 5.0 [facility] Comment on above: Performed By: #### 2 68449 #### [facility],[address] [place] [address] 22436 Lipid 1996 panel Normal [facility] Comment on above: Result Comment: LIPI D PROFILE Performed By: #### 2 15884 #### [facility],[address] [place] [address] 76070 Triglyceride [Mass/Vol] 189 mg/dL High 0 - 150 [facility] Comment on above: Performed By: #### 2 15954 #### [facility],[address] [place] [address] 71513 Vital Signs Date Time Vital Sign Value Performing Clinician Henrique alba 04-18-2025 08:53-0400 Body height 195.58 cm Keegan Rothman MD Work Phone: [facility] 04-18-2025 08:53-0400 Body mass index (BMI) [Ratio] 30.8 kg/m2 Keegan Rothman MD Work Phone: [facility] 04-18-2025 08:53-0400 Body weight 117.93 kg Keegan Rothman MD Work Phone: [facility] 03-21-2025 09:19-0400 Body height 195.58 cm Keegan Rothman MD Work Phone: [facility] 03-21-2025 09:19-0400 Body mass index (BMI) [Ratio] 30.7 kg/m2 Keegan Rothman MD Work Phone: [facility] 03-21-2025 09:19-0400 Body weight 117.7 kg Keegan Rothman MD Work Phone: [facility] Encounters Encounter Date Encounter Type Care Provider Facility Start: 09-09-2025 ambulatory Diego Walker Facility:[facility] Start: 09-02-2025 Encounter for other preprocedural examination Diego [facility] Start: 08-26-2025 ambulatory Diego Walker Facility:[facility] Start: 08-23-2025 End: 08-23-2025 ambulatory Sheila Sullivan [employer] Facility:[facility] Start: 08-01-2025 End: 08-01-2025 ambulatory Sheila Sullivan [employer]CRE[employer]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 Taras Harp MD -[facility] Start: 04-18-2025 End: 04-18-2025 ambulatory Naheed Mc [facility] Work Phone: Start: 03-21-2025 End: 03-21-[address] Taras Harp MD -[facility] Start: 03-21-2025 End: 03-21-2025 ambulatory Keegan Rothman [facility] Work Phone: Start: 03-14-2025 End: 03-14-2025 ambulatory [facility] Start: 03-14-2025 Encounter for genera l adult medical examination without abnormal findings [facility] Start: 09-07-2024 End: 09-07-2024 ambulatory [facility] Procedures Date Procedure Procedure Detail Performing Clinician Start: 03-21-2025 X-ray of knee, four or more views Keegan Rothman MD Work Phone: Plan of Treatment Date Care Activity Detail Author Start: 04-18-2025 X-ray of lumbosacral spine L/S Spine Min 4 Views [facility] Start: 04-18-2025 XR Spine Lumbar and Sacrum GE 4 Views [facility] Start: 03-21-2025 X-ray of knee, four or more views Knee 4 or More Views [facility] Start: 03-21-2025 XR Knee GE 4 Views [facility] Payers Date Payer Category Payer Self-pay 2025 Medicaid [id number] 2021 Unknown [id number] 1975 Unknown [id number] 2.16.8 [id number] 1975 Unknown [id number] 2.16.8 [id number] 1975 Unknown [id number] 2.16.8 [id number] 1975 Unknown [id number] 2.16.8 [id number] Unknown [id number] 2.16.8 [id number] Unknown [id number] 2.16.8 [id number] Unknown [id number] 2.16.8 [id number] Unknown [id number] 2.16.8 [id number] Unknown [id number] 2.16.8 [id number] Unknown [id number] 2.16.8 [id number] Unknown [id number] 2.16.8 [id number] Social History Date Type Detail Facility Start: 03-21-2025 Tobacco smoking stat us [facility] Never smoked tobacco (finding) [facility] Start: 1975 Sex Assigned At Male [facility] Evaluation note 03-21-2025 Note Date & Type Note Facility 03-21-2025 Evaluation note Diagnosis Onset Date Resolution Effusion, right knee acute March 21, 2025 9:12am Osteoarthritis of right knee acute March 21, 2025 9:12am Right knee pain acute March 21, 2025 9:12am [facility] Work Phone: Progress note 03-21-2025 Note Date & Type Note Facility 03-21-2025 Progress note [facility] Progress note 03-21-2025 Note Date & Type Note Facility 03-21-2025 Progress note Note Date/Time March 21, 2025 9:50a m [facility] [address] [place] [address]368 OFFICE VISIT Date of Service: 03/21/25 MR#: [id number] Acct: [id number] Name: JOSE ZAPIEN Rep #: [id number] : 1975 Provider: Dr. Eduardo Rothman MD Age/Sex: 49/M Location: [facility] Status: Signed Intake Vital Signs 03/21/25 09:19 Height 6 ft 5 in Weight: 259 lb 8 oz BMI 30.7 Intake Visit Reasons: RIGHT KNEE Accompanied by: Self Is patient in pain?: Yes Pain scale (1-10): 3 Allergies No Known Allergies Allergy (Unverified 03/21/25 09:19) Medications ?Medication ?Instructions ?Recorded ?Confirmed ?Type amlodipine 10 mg tablet 10 mg PO QDAY 03/21/2503/21 History atorvastatin 80 mg tablet 80 mg PO QDAY 03/21/2503/21 History cetirizine 10 mg tablet 10 mg PO QHS 03/21/25 History Have you fallen in the past year?: No PFSH Medical History (Updated 03/21/25 @ 09:43 by Keegan Rothman MD) Osteoarthritis of right knee Effusion, right knee Right knee pain Surgical History (Updated 03/21/25 @ 09:21 by Gayle Ley) H/O hernia repair Family History (Updated 03/21/25 @ 09:22 by Gayle Ley) Father Diabetes Mother Diabetes Social History (Updated 03/21/25 @ 09:22 by Gayle Ley) household members: spouse Smoking Status: Never smoker alcohol intake: current HPI RIGHT KNEE Details: This documentation accurately reflects the service provided and the decisions made by me, Dr. Keegan Rothman MD 03/21/25 0802. Part of today?s visit was documented by [ ], acting as scribe. JOSE ZAPIEN is a 49 year old M here today for right knee pain. This has been going on for 30 years. Back then the patient was 20 and he was told that he has some soft tissue that needed to be removed in the knee he never got that done his dad had carpal tunnel syndrome at the time and arthritis. He has been dealing with a problem ever since has not had no surgery no recent treatment no bracing physical therapy or other forms of management. 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 Most the pain is anteriorly and diffusely about the knee. It feels tight to go into deep flexion. No recent injuries. Supplemental Info Right knee x-rays 4 views obtained this demonstrates mild medial OA. nil acute. effusion Coding Level of Care Code Off vis,new,level 4 Diagnoses Right knee pain M25.561 Effusion, right knee M25.461 Osteoarthritis of right knee M17.11 Assessment and Plan Assessment and Plan (1) Right knee pain: Status: Acute Plan: JOSE ZAPIEN is a 49 year old M here today for right knee pain. Wants to carry on non surgical and try some oral NSAIds. declined an injection today, will try another week of conservative management. Declined PT / MRI pathway. Has tried a brace. If no better or worse in a week then will try the injection. Patient counselled on diagnosis, prognosis and treatment options. Osteoarthritis (OA) occurs when the cartilage in the knee joint breaks down, causing pain and stiffness. Here are several treatment options to help manage knee pain: 1. Lifestyle Changes What it is: Losing weight, avoiding high-impact activities, and exercising with low-impact activities like swimming or walking. How it helps: Reduces strain on the knee joint, improves muscle strength, and eases pain. 2. Physical Therapy What it is: Targeted exercises to strengthen the muscles around the knee and improve flexibility. How it helps: Provides support to the knee and improves mobility, reducing pain. 3. Medications What they are: Adse-eob-rfrdvqm pain relievers like ibuprofen, naproxen, or acetaminophen. How they help: Reduce pain and inflammation, making it easier to move the knee. 4. Injections What they are: Corticosteroid injections for inflammation, hyaluronic acid for lubrication, or PRP injections to promote healing. How they help: Provide temporary pain relief and improve knee function. 5. Assistive Devices What they are: Knee braces, sleeves, or custom shoe inserts. How they help: Provide support, stabilize the knee, and reduce pain. 6. Heat and Cold Therapy What it is: Applying heat or cold to the knee to relieve pain and swelling. How it helps: Heat relaxes muscles, and cold reduces inflammation. 7. Surgery What it is: Options like arthroscopy or knee replacement surgery for severe cases. How it helps: Provides long-term pain relief and improves knee function. When to Seek Help: If knee pain affects daily activities or doesn?t improve with self-care measures. (2) Effusion, right knee: Status: Acute (3) Osteoarthritis of right knee: Status: Acute Orders: Orders Knee 4 or More Views Today M25.561 - Pain in right knee Clinical Quality Measures Falls Risk Screening/Assistive Devices Have you fallen in the past year?: No Ortho Exam General General: Yes no acute distress Neurologic: Yes alert and Yes oriented x3 Psychologic: Yes reasonable and appropriate Right Knee Skin/Wound: Yes CDI, No erythema, No ecchymosis and Yes swelling (mild pre patellar) 1+: Effusion Examination: No Med jt line tenderness, No Lat jt line tenderness, No TTP inf pole patella, No Crepitus, Yes Pain with flexion, No Meron's Test, No TTP Patellar tendon, No TTP Tibial tubercle, No TTP Pes Anserine and No Illiotibial band tenderness Quad Atrophy: No Stability: NML: Anterior Drawer, NML: Talon, NML: Posterior Drawer, NML: Valgus 0, NML: Valgus 30, NML: Varus 0 and NML: Varus 30 Patella Translation: 2 Apprehension with Lateral Translation: No Patellar Tilt Normal: Yes Patella Grind: No KNEE: NVI, normal alignment, moderate effusion, no warmth, rom 0-130, able to SLR. Left Knee Patella Translation: 2 03/21/25 0950 <Electronically signed by Keegan berger MD> Date _ Keegan Rothman MD Cosigner Signature: Date (if applicable) CC: ~ [facility] [place] Work Phone: Evaluation note Note Date & Type Note Facility Evaluation note Diagnosis Onset Date Resolution Right knee pain acute March 21, 2025 9:12am [facility] [place] Work Phone: Evaluation note Note Date & Type Note Facility Evaluation note Diagnosis Onset Date Resolution Effusion, right knee acute March 21, 2025 9:12am Osteoarthritis of right knee acute March 21, 2025 9:12am Right knee pain acute March 21, 2025 9:12am [facility] [place] Work Phone: Reason for referral (narrative) Note Date & Type Note Facility Reason for referral (narrative) No reason for referral information available [facility] [place] Work Phone: Chief Complaint and Reason for Visit Chief Complaint Admit Date RIGHT KNEE March 21, 2025 9:12a m RM 1 March 21, 2025 9:25a m Reason for Visit Admit Date Effusion, right knee March 21, 2025 9:12 am Osteoarthritis of right knee March 21, 2 025 9:12am Right knee pain March 21, 2025 9:12a m Reason for Visit Admit Date Right knee pain March 21, 2025 9:12a m Chief Complaint Admit Date RIGHT KNEE March 21, 2025 9:12a m RM 1 March 21, 2025 9:25a m LUMBAR SPINE April 18, 2025 8:50 am Room 2 April 18, 2025 9:05 am Family History No Family History Records Found Relationship Condition Age at Onset Recorded Date/T myriam father Diabetes mellitus Unknown mother Diabetes mellitus Unknown Summary Purpose Advance Directives No Advanced Directives Records FoundNo Advanced Directives Records FoundNo Advanced Directives Records Found Additional Source Comments Care Teams (unrecognized sec tion and content) Team Status: Active Member Role Status Dates Keegan Rothman MD Attending Provider Active St art: March 21, 2025 Team Status: Inactive Member Role Status Dates Dr. Taras Harp MD Attending Provider Active S tart: March 21, 2025 End: March 21, 2025 Team Status: Inactive Member Role Status Dates Keegan Rothman MD Attending Provider Active St art: March 21, 2025 End: March 21, 2025 Team Status: Active Member Role Status Dates MAIA Jane Attending Provider Active Star t: April 18, 2025 Team Status: Inactive Member Role Status Dates Dr. Taras Harp MD Attending Provider Active S tart: April 18, 2025 End: April 18, 2025 Team Status: Inactive Member Role Status Dates MAIA Jane Attending Provider Active Star t: April 18, 2025 End: April 18, 2025 Goals (unrecognized section and content) Goals may be documented in a n alternate sectionGoals may be documented in an alternate sectionGoals may be documented in an alternate sectionGoals may be documented in an alternate section (unrecognized sect ion and content) No Status Records FoundNo Status Records FoundNo Status Records Found INFORMATION SOURCE (unrecogn ized section and content) DATE CREATED AUTHOR 08/22/[address] [facility] DATE CREATED AUTHOR AUTHOR'S ORGANIZ ATION 08/24/2025 [facility] DATE CREATED AUTHOR AUTHOR'S ORGANIZ ATION 09/03/2025 [facility] FOR RECORDS PERTAINING TO PATIENTS WHO ARE OR HAVE BEEN ENROLLED IN A CHEMICAL DEPENDENCY/SUBSTANCEABUSE PROGRAM, SOME INFORMATION MAY BE OMITTED. This clinical summary was aggregated from multiple sources. Caution should be exercised in using it in the provision of clinical care. This summary normalizes information from multiple sources, and as a consequence, information in this document may materially change the coding, format and clinical context of patient data. In addition, data may be omitted in some cases. CLINICAL DECISIONS SHOULD BE BASED ON THE PRIMARY CLINICAL RECORDS. [employer] provides no warranty or guarantee of the accuracy or completeness of information in this document.
[2025-09-09] MEDS: Lactated Ringers 1,000 ML 15 ML IV (07:19)
--- NOTE | 2025-09-09 08:14 | PCM.PRE.AN2 ---
ASA Classification* ASA Classification ASA Classification: 2 Assessment & Plan Anesthesia* Anesthesia Assessment Anesthesia Assessment: Discussed sedation and/or anesthesia options, risks, benefits, and alternatives with patient/parents/legal guardian/POA. Questions invited. The patient/parents/legal guardian/POA seems to understand and agrees to proceed with anesthesia plan. Reviewed the physical assessment, medical history, allergy history and patient home medications list prior to surgery/procedure/anesthetic and documented any changes. Performed airway and anesthesia risk assessments. Anesthesia Type Anesthesia Type: General History Source History Obtained from:: Patient and Chart Anesthesia Focused Assessment* Temperature: 98.7 F Pulse Rate: 93 Blood Pressure: 141/91 Respiratory Rate: 16 Pulse Ox: 98 Oxygen Delivery Method: Room Air Airway Assessment Mouth opens: >3 cm Mallampati Score: II Teeth Condition: Caps/Crowns (Patient has 1 crown. 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 When Was Last Pacemaker Check QUESTION #4 FULL TEXT: You/Your Family Experience fever (hyperthermia) with Anesthesia Last Oral Intake Last Oral intake: Last Oral Intake NPO since 22:00 09/09/25 07:16 Meds taken in AM with sips of water? 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 Female No 08/26/25 13:16 HX of Motion Sickness Yes 08/26/25 13:16 HX of N/V After Surgery No 08/26/25 13:16 Non-Smoker Yes 08/26/25 13:16 Duration of Surgery greater Yes 08/26/25 13:16 than 60 minutes Number of Risk Factors 3 08/26/25 13:16 PONV Score Moderate Risk 08/26/25 13:16 Height & Weight Height & Weight: Anesthesia: Height & Weight Height 6 ft 5 in 09/09/25 07:16 Weight: 120 kg 09/09/25 07:16 Body Mass Index (BMI) 31.4 09/09/25 07:16 Respiratory Assessment Respiratory Assessment - 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 Has anyone observed you stop No 08/26/25 13:16 breathing during sleep? STOP Results Negative 08/26/25 13:16 QUESTION #5 FULL TEXT : Do you snore loudly (louder than talking or can be heard through closed doors)? 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 Specify any problems Hx of Preganancy in last 3 N/A 08/26/25 13:16 Months Nurse Filling Out Transfusion NBUCHER 08/26/25 13:16 & Questions: Date: 08/26/25 08/26/25 13:16 Time: 13:17 08/26/25 13:16 Patient unable to answer at this time (ie. 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: /Reproductive Hx- waterworks pump station operator Hx Now No 08/26/25 13:16 Gestational Age (in weeks): EDC: Hx Hx Para Hx Section SAB No 08/26/25 13:16 Does the father of the baby or his family experience fever w Father of the baby Malignant Hypertension history comment Active Medications Active Medications: Current Medications Generic Name Dose Route Start Last Admin Trade Name Freq PRN Reason Stop Dose Admin Lactated Ringer's 1,000 mls @ 15 mls/hr 09/09/25 07:15 09/09/25 07:19 IV 15 mls/hr .Q48H RAMON Administration PFSH Medical History High cholesterol Blackout Gastric reflux Non-smoker History of edema Osteoarthritis of right knee Effusion, right knee Right knee pain Home Medications Medication Instructions Recorded Last Taken Type amlodipine 10 mg tablet 10 mg PO QDAY 03/21/25 09/08/25 History atorvastatin 80 mg tablet 80 mg PO QDAY 03/21/25 09/08/25 History cetirizine 10 mg tablet 10 mg PO QHS 03/21/25 09/08/25 History cyclobenzaprine 10 mg tablet 10 mg PO QHS PRN PRN muscle spasm 08/26/25 Unknown History meloxicam 15 mg tablet 15 mg PO DAILY PRN pain 08/26/25 Unknown History montelukast 10 mg tablet 10 mg PO DAILY 08/26/25 09/08/25 History Allergy/AdvReac Type Severity Reaction Status Date / Time cat dander (cats) Allergy Severe Stuffy nose Verified 09/09/25 07:13 Family History Father Diabetes Mother Diabetes Surgical History Hx of LASIK (09/23/24) H/O hernia repair Social History household members: spouse Smoking Status: Never smoker alcohol intake: current Review of Systems (Anesthesia) ROS Narrative System reviewed and no additional complaints, except as documented.
--- NOTE | 2025-09-09 08:45 | SEP_PTH ---
PATIENT: JOSE ZAPIEN LOC: [facility] [place] U#:[id number] AGE/SX: 50/M ROOM: RE09/09/[address]: Dr. Diego Walker MD : 1975 BED: DIS: 09/09/2025 SPEC #: [id number] RECD: 09/09/25 10:52 STATUS: GREGG RETerri #: [id number] LÁZARO: 09/09/25 08:[address]: Diego Walker DEPT: SURGICAL PATHOLOGY RECD BY: Ozzie Steward ENTERED: 09/09/25 12:14 SP TYPE: SEPTUM OTHR DR: Sheila Maldonado, MEDICAL EXAMINER-C Tissues: A - Nasal septum, NOS Procedures: Decalcification bone/plaque Surgery Specimen Level III HEADER OPERATION: Septoplasty, resect / outfracture turbinates PRE-OP DIAGNOSIS: Nasal airway obstruction, turbinate hypertrophy, deviated septum TISSUE SUBMITTED: A- Septum MICROSCOPIC DIAGNOSIS A. Septum, septoplasty: * Fragments of benign cartilage and bone MICROSCOPIC DESCRIPTION Slides are reviewed. GROSS DESCRIPTION A. Received in formalin labeled with the patient's name and date of . Designated as " septum" is a is a 3.4 x 3.3 x 0.9 cm aggregate of pitts-white to pink-red, irregular bone and cartilaginous tissue fragments. Director Of Nuclear Medicine sections are submitted in 1 cassette, following decalcification. [place] 09/09/2025PT:[id number]
[2025-09-09] MEDS: Midazolam 2 MG/2 ML Syringe IV (08:49)
--- NOTE | 2025-09-09 08:55 | DS.PCM_ITS ---
Providers Primary Care Physician: DANILO Quick Reason For Visit: Septoplasty, Resect/Outfracture Turbinates Medications at Discharge Home Medications amlodipine 10 mg tablet 10 mg PO QDAY 03/21/25 atorvastatin 80 mg tablet 80 mg PO QDAY 03/21/25 cetirizine 10 mg tablet 10 mg PO QHS 03/21/25 cyclobenzaprine 10 mg tablet 10 mg PO QHS PRN PRN muscle spasm 08/26/25 meloxicam 15 mg tablet 15 mg PO DAILY PRN pain 08/26/25 montelukast 10 mg tablet 10 mg PO DAILY 08/26/25 Weight / BMI Weight Weight: 120 kg Body Mass Index (BMI) 31.4 D/C Instructions Discharge Activity: Return to Normal Activity Additional Activity Instructions: No nose blowing. Start saline irrigation tomorrow. Irrigate 3x/day. DC O2, CPAP, BIPAP Needs Home O2 Discharge instructions: No Please Follow Up With: Diego Walker MD When: 8 days Meaningful Use Info Meaningful Use Meaningful Use Diagnoses (Choose all that apply): None applicable Discharge Plan Admission Attending Provider: Diego Walker Primary Care Provider: Sheila Maldonado NP Instructions Print Language: Mexican Discharge Orders/Prescriptions Prescriptions: No Action amlodipine 10 mg tablet 10 mg PO QDAY atorvastatin 80 mg tablet 80 mg PO QDAY cetirizine 10 mg tablet 10 mg PO QHS meloxicam 15 mg tablet 15 mg PO DAILY PRN (Reason: pain) montelukast 10 mg tablet 10 mg PO DAILY cyclobenzaprine 10 mg tablet 10 mg PO QHS PRN PRN (Reason: muscle spasm) Other Ambulatory Orders: 12 Lead EKG (Routine) Location: None Selected Ordered By: Dr. Remington Jones Referrals / Follow Up: Sheila Maldonado NP, CYLINDER MACHINE OPERATOR PULP DRIER-C [Primary Care Provider, Family Practice] Disposition Disposition (needs filled in before D/C Order can be placed): Home, Self Care
--- NOTE | 2025-09-09 08:58 | PCM.OPRPT ---
Operative Report (Standard) Operative Information Date of Procedure: 09/09/25 Pre-Operative Diagnosis: Nasal airway obstruction Deviated septum Inferior turbinate hypertrophy bilaterally Post-Operative Diagnosis: same Surgery/Procedure Performed: Septoplasty Submucous resection of the inferior turbinates bilaterally. motion study analyst: No Type of Anesthesia: General RN Documented Start/Stop Times: Operation Date: 09/09/25 08:45 Case Time Into Pre-Op 09/09/25 07:05 Out of Pre-Op 09/09/25 08:47 Anesthesia Start 09/09/25 08:49 Into Room 09/09/25 08:49 Procedure Start 09/09/25 09:07 Procedure Start Time: 09:07 Procedure Stop Time: 09:55 Select all DRAINS/GRAFTS/IMPLANTS that apply: None Estimated Blood Loss: minimal Specimen collected: Yes Description of specimen(s) removed: Septum Description of surgery: The patient was taken to the operating room on 09/09/25. He was placed in supine position on the operating table. He was given sufficient general endotracheal anesthesia. The table was elevated 30 degrees. The nose was draped sterilely. 1% lidocaine with epinephrine was injected into the septum nasal floor anterior aspect of the inferior turbinates bilaterally. Nasal hair was trimmed with the scissors and removed. A right hemitransfixion incision was made with a 15 blade. The mucoperichondrium was elevated off of the left-hand side of the septum with a Lehr elevator. An anterior and posterior tunnel were created in this fashion. The bony cartilaginous junction was with a Lehr elevator. A posterior tunnel was created on the right side, developed by elevating the mucoperichondrium with a Lehr. The deviated portions of bony septum removed using open Eugene-Cady forceps. Next I established a plane on the right-hand side of the quadrangular cartilage. I left a superior and anterior cartilage strip of 2.5 cm and the deviated portion of the quadrangular cartilage was excised with a D knife. The maxillary crest was removed with a hammer and chisel. This provided excellent mobility of the septum and could be placed in the midline. Afrin was used for hemostasis as well as Hemoblast powder. Next, an incision was placed anterior aspect of the right inferior turbinate at the mucocutaneous junction. A submucous plane established with a caudal elevator. Submucous resection was carried out using a microdebrider where bone and tissue were removed. Afrin pledgets were used for hemostasis. The incision was then closed with 4-0 chromic. Then, an incision was placed at the anterior aspect of the left inferior turbinate at the mucocutaneous junction. A submucous plane established using a caudal elevator. Submucous resection was carried out using a microdebrider where bone and tissue were removed. The incision was then closed with 4-0 chromic. Afrin and Hemoblast were used for hemostasis. The hemitransfixion incision was closed with 4-0 chromic. Boyle nasal splints were applied to each side of the septum and sewn through and through with 3-0 silk. The patient was then awoken and brought to the recovery room in stable condition. Blood loss minimal, replacement none. Sponge, needle count, sponge count, were correct at the end of this procedure. Surgical Findings: deviated septum, hypertrophic inferior turbinates Complications Complications: No
[2025-09-09] MEDS: Oxymetazoline 0.05% 1 SPRAY SPRAY.BTL 15 SPRAY (09:32)
[2025-09-09] MEDS: Mupirocin Ointment 22gm Tube 1 APPLIC (09:33)
[2025-09-09] MEDS: Lidocaine 1% /Epi 1:100 (20ml) 20 ML Vial (09:34)
[2025-09-09] MEDS: fentaNYL 100 MCG/2 ML Ampul 200 MCG IV (09:54)
--- NOTE | 2025-09-09 10:10 | PCM.POST.ANE ---
Anesthesia: Postop Eval I Current Vital Signs Temperature: 98.3 F Pulse Rate: 87 Blood Pressure: 163/98 Respiratory Rate: 20 Pulse Ox: 98 Assessment Airway patent: Yes Spontaneous unlabored respirations: Yes nausea: No Vomiting: No Anesthesia Complication: No Fluid Hydration Crystalloid volume administer (ml): 1,300 Total IV fluid infused: 1,300 Progress Note Anesthesia document: Postop Eval 1 completed: Yes
--- NOTE | 2025-09-09 16:35 | POSTOPAN2_ITS ---
Anesthesia Postop Eval I Sum Postop Eval Completion status Anesthesia document: Postop Eval 1 completed: Yes Anesthesia Postop Eval I Summary Anesthesia Postop Eval I Summary: Anesthesia Postop Eval I: Assessment Summary Airway patent Yes 09/09/25 10:10 DIRECTOR [email or web address] Spontaneous unlabored Yes 09/09/25 10:10 DIRECTOR [email or web address] respirations Mental status nausea No 09/09/25 10:10 DIRECTOR [email or web address] Vomiting No 09/09/25 10:10 DIRECTOR [email or web address] Anesthesia Postop Eval I: Fluid Summary Crystalloid volume administer 1,300 09/09/25 10:10 DIRECTOR [email or web address] (ml) Colloids volume administered ( ml) Blood Product volume administered (ml) Total IV fluid infused 1,300 09/09/25 10:10 DIRECTOR [email or web address] Anesthesia Postop Eval I: Summary Notes Anesthesia Complication No 09/09/25 10:10 DIRECTOR [email or web address] Anesthesia Complication Comment: Post-operative progress note Anesthesia: Postop Eval II Evaluation Mental status: Awake and Calm Pain Level: 1 nausea: No Vomiting: No
--- NOTE | 2025-09-09 16:35 | PCM.POSTANE2 ---
Anesthesia Postop Eval I Sum Postop Eval Completion status Anesthesia document: Postop Eval 1 completed: Yes Anesthesia Postop Eval I Summary Anesthesia Postop Eval I Summary: Anesthesia Postop Eval I: Assessment Summary Airway patent Yes 09/09/25 10:10 [email or web address] Spontaneous unlabored Yes 09/09/25 10:10 HOSE [email or web address] respirations Mental status nausea No 09/09/25 10:10 HOSE [email or web address] Vomiting No 09/09/25 10:10 HOSE [email or web address] Anesthesia Postop Eval I: Fluid Summary Crystalloid volume administer 1,300 09/09/25 10:10 HOSE [email or web address] (ml) Colloids volume administered ( ml) Blood Product volume administered (ml) Total IV fluid infused 1,300 09/09/25 10:10 HOSE [email or web address] Anesthesia Postop Eval I: Summary Notes Anesthesia Complication No 09/09/25 10:10 HOSE [email or web address] Anesthesia Complication Comment: Post-operative progress note Anesthesia: Postop Eval II Evaluation Mental status: Awake and Calm Pain Level: 1 nausea: No Vomiting: No
== END 2025-09-09 10:43 | disposition home or self-care (01) ==
LOC: SDC 06:52 → AC 06:53
PROVIDERS: PCP Nurse Practitioner Family; Referring Provider Otolaryngology; Visit Provider Otolaryngology
DX: J34.2 Deviated nasal septum (principal); J34.89 Other specified disorders of nose and nasal sinuses; J34.3 Hypertrophy of nasal turbinates; Z79.899 Other long term (current) drug therapy
CPT/HCPCS: 30520; 30140; 00160; 88304; 88311; 93005; J2405